=== PATIENT | male | born 1970 | race American Indian/Alaskan Native ===

== ENCOUNTER 2017-08-10 06:55 | Emergency (ER) | payer OTHER ==
[2017-08-10 08:16] VITALS: BP 143/90
--- NOTE | 2017-08-10 12:02 | Emergency Department Report ---
Minor Respiratory - HPI Chief Complaint: Upper Respiratory Infection Stated Complaint: BODYACHE Time Seen by Provider: 08/10/17 11:11 Duration: 1 Day Pain Location: Other (generalized body aches) Severity: moderate Minor Respiratory: Yes Rhinorrhea, Yes Able to Tolerate Fluids, Yes Cough, Yes Chest Pain (with cough), Yes Fever, No Sore Throat, No Ear Pain, No Sick Contacts, No Hemoptysis, No Shortness of Breath Other History: This is a 46 y.o. male presents with cough, fever, chills, runny nose, nasal congestion, and body aches for 1 day. He is taking mucinex for symptoms with minimal improvement. Denies sick contact. He is an active smoker, 1 pack per day. Denies chest pain, SOB, and wheezing. ED Review of Systems ROS: Stated complaint: BODYACHE Other details as noted in HPI Constitutional: chills, fever, malaise. denies: diaphoresis Eyes: denies: eye pain, eye discharge, vision change ENT: congestion. denies: ear pain, throat pain Respiratory: see HPI, cough. denies: orthopnea, shortness of breath, SOB with exertion, SOB at rest, stridor, wheezing Cardiovascular: denies: chest pain, palpitations Gastrointestinal: denies: abdominal pain, nausea, vomiting, diarrhea Musculoskeletal: myalgia (generalized body aches) Neurological: headache. denies: weakness, numbness, paresthesias ED Past Medical Hx - Past Medical History Previous Medical History?: No - Surgical History Past Surgical History?: No - Social History Smoking Status: Current Every Day Smoker Substance Use Type: None - Medications Home Medications: Home Medications Medication Instructions Recorded Confirmed Last Taken Type Brompheniramine/Pseudoephed/Dm 118 ml PO Q4H PRN #100 syrup 08/10/17 Unknown Rx [Bromfed Dm Cough Syrup] Fluticasone [Flonase] 1 spray NS QDAY #1 bottle 08/10/17 Unknown Rx Oseltamivir [Tamiflu] 75 mg PO BID 5 Days #10 cap 08/10/17 Unknown Rx Minor Respiratory Exam - Exam General: Vital signs noted. No distress. Alert and acting appropriately. HEENT: Yes Pharyngeal Erythema, Yes Moist Mucous Membranes (swollen and red turbinates, mucoid discharge bilaterally), Yes Rhinorrhea, Yes Frontal Tenderness, No Pharyngeal Exudates, No Conjuctival Injection, No Maxillary Tenderness Ear: Neither TM Bulge, Neither TM Erythema, Neither EAC Pain, Neither EAC Discharge Neck: Yes Supple, No Adenopathy Lungs: Yes Good Air Exchange, Yes Cough, Yes Other Abnormal Lung Sounds ( dimished throughout), No Wheezes, No Ronchi, No Stridor, No Labored Respirations , No Retractions, No Use of Accessory Muscles Heart: Yes Regular, No Murmur Abdomen: Yes Normal Bowel Sounds, No Tenderness, No Peritoneal Signs Skin: No Rash, No Edema Neurologic: Alert and oriented, no deficits. Musculoskeletal: Unremarkable. ED Course Vital Signs 08/10/17 08:13 Temperature 100.5 F H Pulse Rate 123 H Respiratory 22 Rate Blood Pressure 143/90 O2 Sat by Pulse 98 Oximetry Vital Signs 08/10/17 08/10/17 08:13 13:16 Temperature 100.5 F H Pulse Rate 123 H 104 H Respiratory 22 20 Rate Blood Pressure 143/90 O2 Sat by Pulse 98 96 Oximetry ED Medical Decision Making - Radiology Data Radiology results: image reviewed Chest X-ray History: Cough. PA and lateral views demonstrate the heart and mediastinal contour to be of normal size and shape. The lungs are clear and fully expanded and the soft tissues and bony structures are normal. IMPRESSION: Normal study. - Medical Decision Making 46 y.o. male presents with cough, fever, chills, runny nose, congestion, and body aches for 1 day. Current smoker, 1 ppd. Denies getting influenza vaccine or recent exposure to sick contacts. Taking mucinex with minimal improvement. Rapid flu, negative CXR History: Cough. PA and lateral views demonstrate the heart and mediastinal contour to be of normal size and shape. The lungs are clear and fully expanded and the soft tissues and bony structures are normal. IMPRESSION: Normal study. Physical exam findings cc Suspicious of viral syndrome Discharged home with tamiflu, flonase, & bromfed Instructed to continue taking tylenol for fever. F/U with PCP. Return to ER if fever, SOB, wheezing, chest pain, or symptoms are not improving. Critical care attestation.: If time is entered above; I have spent that time in minutes in the direct care of this critically ill patient, excluding procedure time. ED Disposition Clinical Impression: Viral syndrome URI (upper respiratory infection) Qualifiers: URI type: acute nasopharyngitis (common cold) Qualified Code(s): J00 - Acute nasopharyngitis [common cold] Disposition: DC-01 TO HOME OR SELFCARE Is pt being admited?: No Does the pt Need Aspirin: No Condition: Stable Instructions: Upper Respiratory Infection (ED), Viral Syndrome (ED) Additional Instructions: Increase fluid intake. Wash hands frequently to decrease the spread of infection. Take tylenol or ibuprofen to control fever. Follow up with Primary Care Provider if symptoms are not improving. Return to ER if chest pain, fever, abdominal pain, SOB, wheezing, or difficulty breathing. Prescriptions: Brompheniramine/Pseudoephed/Dm [Bromfed Dm Cough Syrup] 118 ml PO Q4H PRN #100 syrup PRN Reason: Cough Fluticasone [Flonase] 1 spray NS QDAY #1 bottle Oseltamivir [Tamiflu] 75 mg PO BID 5 Days #10 cap Referrals: PRIMARY CARE, [Primary Care Provider] - 3-5 Days [facility] [Outside] - 3-5 Days [facility] [Outside] - 3-5 Days Forms: Work/School Release Form(ED) Time of Disposition: 13:13 Print Language: HEBREW
--- NOTE | 2017-08-10 12:45 | XRay Report ---
ROUTINE CHEST, TWO VIEWS: History: Cough. PA and lateral views demonstrate the heart and mediastinal contour to be of normal size and shape. The lungs are clear and fully expanded and the soft tissues and bony structures are normal. IMPRESSION: Normal study.
== END 2017-08-10 13:17 | disposition home or self-care (01) ==
LOC: ED 06:55
DX: J00 Acute nasopharyngitis [common cold] (principal); B34.9 Viral infection, unspecified; F17.210 Nicotine dependence, cigarettes, uncomplicated
CPT/HCPCS: 71046; 87400; 99283